=== PATIENT | female | born 1950 | race Caucasian/White ===

== ENCOUNTER 2023-07-25 11:15 | Outpatient (RCR) | payer MEDICARE, OTHER, SELFPAY | END 2023-08-16 12:50 | disposition home or self-care (01) | LOC: PURB 11:15 | PROVIDERS: ATTENDING PHYSICIAN Internal Medicine Pulmonary Disease; FAMILY PHYSICIAN Family Medicine | DX: J43.1 Panlobular emphysema (principal) | CPT/HCPCS: G0239 ==

== ENCOUNTER 2023-08-17 10:45 | Outpatient (RCR) | payer MEDICARE, OTHER, SELFPAY | END 2023-08-23 10:17 | disposition home or self-care (01) | LOC: PURB 10:45 | PROVIDERS: ATTENDING PHYSICIAN Internal Medicine Pulmonary Disease; FAMILY PHYSICIAN Family Medicine | DX: J43.1 Panlobular emphysema (principal) | CPT/HCPCS: G0239 ==

== ENCOUNTER → 2024-12-13 07:33 | Outpatient (REF) | payer MEDICARE, OTHER, SELFPAY | LOC: HWRAD 07:33 | PROVIDERS: ATTENDING PHYSICIAN Family Medicine | DX: M81.0 Age-related osteoporosis without current pathological fracture (principal); E88.01 Alpha-1-antitrypsin deficiency | CPT/HCPCS: 76770; 77080 ==